=== PATIENT | male | born 1945 | race Caucasian/White ===

== ENCOUNTER 2024-08-07 12:56 | Day surgery (SDC) | payer MEDICARE ==
[2024-08-07 13:15] VITALS: BP 161/82; TEMP 98.1
[2024-08-07] MEDS ORDERED: Lidocaine 1% PF 5 ML VIAL ONE (13:17)
[2024-08-07] MEDS ORDERED: Sodium Bicarbonate 2.5 MEQ/5 ML SDV ONE (13:17)
[2024-08-07 15:25] LABS: Body Fluid Source Ascites Body Fluid; Clarity Hazy (Clear); Tube # EDTA
[2024-08-07 15:28] LABS: BF Color Yellow
[2024-08-07 16:02] LABS: BF Segmented Neutrophils 5 %; Cell Count Non Hematic 73 %; Lymphocytes 22 %
== END 2024-08-07 14:46 | disposition home or self-care (01) ==
LOC: CSHULT 12:56
PROVIDERS: ATTEND Physician Assistant Medical
PROC: 0W9G30Z Drainage of Peritoneal Cavity with Drainage Device, Percutaneous Approach (ICD-10-PCS; principal; 2024-08-07)
DX: K74.60 Unspecified cirrhosis of liver (principal); R18.8 Other ascites
CPT/HCPCS: 49083; 89051

== ENCOUNTER → 2024-08-21 | Day surgery (SDC) | payer MEDICARE ==
[~2024-08-21] MED LIST: Albumin 25% 200 ML ONE; FLU (Fluad Triv) TS24-25 (65UP)/MF59C/PF 45 MCG/0.5 ML Syringe IM ONE; Lidocaine 1% PF 5 ML VIAL ONE; Sodium Bicarbonate 2.5 MEQ/5 ML SDV ONE
[2024-08-21 13:17] VITALS: BP 126/60; TEMP 98.6
[2024-08-21 13:28] LABS: INR-International Normal Ratio 1.1; Prothrombin Time 11.7 sec (9.5-12.1)
[2024-08-21 13:36] LABS: #Basophils 0.03 10x3/uL (0.0-0.2); #Eosinophils 0.29 10x3/uL (0.0-0.5); #Monocytes 0.66 10x3/uL (0.0-1.1); #Neutrophils 5.64 10x3/uL (1.5-8.4); %Basophils 0.4 % (0.0-2.0); %Eosinophils 3.6 % (0.0-6.0); %Lymphocytes 18.1 % (18.0-47.0); %Monocytes 8.1 % (0.0-10.0); %Neutrophils 69.4 % (40.0-75.0); Hemoglobin 11.3 g/dL (13.5-17.5); Mean Corpuscular HGB CONC 32.3 g/dL (32.0-36.0); Mean Corpuscular Hemoglobin 32.5 pg (27.0-33.0); Mean Corpuscular Volume 100.6 fL (81.2-95.1); Mean Platelet Volume 9.6 fL (7.4-10.4); Platelet Count 133 10x3/uL (150-450); RBC Distribution Width 16.2 % (11.5-14.5); Red Blood Cell (RBC) Count 3.48 10x6/uL (4.32-5.72); White Blood Cell (WBC) Count 8.1 10x3/uL (3.5-10.5)
[2024-08-21 14:52] LABS: BF Color Yellow; Body Fluid Source Ascites Body Fluid; Clarity Clear (Clear); Tube # EDTA
[2024-08-21 15:39] LABS: BF Segmented Neutrophils 10 %; Cell Count Non Hematic 10 %; Lymphocytes 80 %
== END ==
LOC: CSHULT 12:29
PROVIDERS: ATTEND Physician Assistant Medical
PROC: 0W9G30Z Drainage of Peritoneal Cavity with Drainage Device, Percutaneous Approach (ICD-10-PCS; principal; 2024-08-21)
DX: K74.60 Unspecified cirrhosis of liver (principal); R18.8 Other ascites; I48.91 Unspecified atrial fibrillation; I25.10 Atherosclerotic heart disease of native coronary artery without angina pectoris; N18.30 Chronic kidney disease, stage 3 unspecified; E11.22 Type 2 diabetes mellitus with diabetic chronic kidney disease; K22.2 Esophageal obstruction; E03.9 Hypothyroidism, unspecified; Z96.619 Presence of unspecified artificial shoulder joint; Z96.653 Presence of artificial knee joint, bilateral; Z79.899 Other long term (current) drug therapy; F17.210 Nicotine dependence, cigarettes, uncomplicated
CPT/HCPCS: 49083; 85025; 85610; 89051; P9047

== ENCOUNTER → 2024-09-04 | Day surgery (SDC) | payer MEDICARE ==
[2024-09-04 13:04] VITALS: BP 146/61; TEMP 97.8
[2024-09-04 14:59] LABS: Body Fluid Source Paracentesis Fluid; Clarity Clear (Clear); Tube # EDTA
[2024-09-04 15:00] LABS: BF Color Yellow
[2024-09-04 15:08] LABS: BF Segmented Neutrophils 2 %; Cell Count Non Hematic 2 %; Lymphocytes 96 %
== END ==
LOC: CSHULT 12:10
PROVIDERS: ATTEND Physician Assistant Medical
PROC: 0W9G30Z Drainage of Peritoneal Cavity with Drainage Device, Percutaneous Approach (ICD-10-PCS; principal; 2024-09-04)
DX: K74.60 Unspecified cirrhosis of liver (principal); R18.8 Other ascites; I48.91 Unspecified atrial fibrillation; I25.10 Atherosclerotic heart disease of native coronary artery without angina pectoris; N18.30 Chronic kidney disease, stage 3 unspecified; E03.9 Hypothyroidism, unspecified; E11.22 Type 2 diabetes mellitus with diabetic chronic kidney disease; F17.210 Nicotine dependence, cigarettes, uncomplicated; Z96.659 Presence of unspecified artificial knee joint; Z90.89 Acquired absence of other organs; Z96.619 Presence of unspecified artificial shoulder joint; Z98.890 Other specified postprocedural states; Z79.899 Other long term (current) drug therapy; Z79.890 Hormone replacement therapy
CPT/HCPCS: 49083; 89051; P9047

== ENCOUNTER 2024-09-12 11:35 | Outpatient (CLI) | payer MEDICARE | END 2024-09-12 11:36 | disposition home or self-care (01) | LOC: CSHWCC 11:35 | PROVIDERS: ATTEND Nurse Practitioner Family | DX: L89.890 Pressure ulcer of other site, unstageable (principal) | CPT/HCPCS: 97597; G0463; 99213 ==

== ENCOUNTER 2024-09-18 12:29 | Day surgery (SDC) | payer MEDICARE ==
[2024-09-18] MEDS ORDERED: Albumin 25% 200 ML ONE (13:02)
[2024-09-18 13:11] VITALS: BP 122/62; TEMP 98.1
[2024-09-18] MEDS ORDERED: Sodium Bicarbonate 2.5 MEQ/5 ML SDV ONE (13:14)
[2024-09-18 14:48] LABS: BF Color Yellow; Body Fluid Source Ascites Body Fluid; Clarity Clear (Clear); Tube # EDTA
[2024-09-18 16:01] LABS: BF Segmented Neutrophils 5 %; Cell Count Non Hematic 9 %; Lymphocytes 86 %
== END 2024-09-18 14:19 | disposition home or self-care (01) ==
LOC: CSHULT 12:29
PROVIDERS: ATTEND Physician Assistant Medical
PROC: 0W9G30Z Drainage of Peritoneal Cavity with Drainage Device, Percutaneous Approach (ICD-10-PCS; principal; 2024-09-18)
DX: K74.60 Unspecified cirrhosis of liver (principal); R18.8 Other ascites; I25.10 Atherosclerotic heart disease of native coronary artery without angina pectoris; N18.30 Chronic kidney disease, stage 3 unspecified; E03.9 Hypothyroidism, unspecified; Z96.619 Presence of unspecified artificial shoulder joint; Z90.89 Acquired absence of other organs; Z96.659 Presence of unspecified artificial knee joint; Z79.899 Other long term (current) drug therapy; F17.210 Nicotine dependence, cigarettes, uncomplicated
CPT/HCPCS: 49083; 89051; P9047

== ENCOUNTER 2024-09-19 15:25 | Outpatient (CLI) | payer MEDICARE | END 2024-09-19 15:26 | disposition home or self-care (01) | LOC: CSHWCC 15:25 | PROVIDERS: ATTEND Nurse Practitioner Family | DX: L89.890 Pressure ulcer of other site, unstageable (principal); G90.09 Other idiopathic peripheral autonomic neuropathy | CPT/HCPCS: 97597; G0463; 99212 ==

== ENCOUNTER 2024-09-27 12:28 | Outpatient (CLI) | payer MEDICARE ==
[2024-09-27] MEDS ORDERED: Magnevist 469MG/ML 20 ML VIAL ONE (13:28)
== END 2024-09-27 12:29 | disposition home or self-care (01) ==
LOC: CSHMRI 12:28
PROVIDERS: ATTEND Nurse Practitioner Family
DX: L89.890 Pressure ulcer of other site, unstageable (principal); L89.899 Pressure ulcer of other site, unspecified stage; M89.9 Disorder of bone, unspecified

== ENCOUNTER 2024-10-02 09:00 | Day surgery (SDC) | payer MEDICARE ==
[2024-10-03 22:27] LABS: BF Color Yellow; Body Fluid Source Ascites Body Fluid; Clarity Clear (Clear); Tube # 1
[2024-10-03 22:29] LABS: BF Segmented Neutrophils 6 %; Cell Count Non Hematic 62 %; Lymphocytes 32 %
[2024-10-13 00:37] LABS: INR-International Normal Ratio 1.1; Prothrombin Time 11.7 sec (9.5-12.1)
== END 2024-10-02 13:00 | disposition home or self-care (01) ==
LOC: CSHULT 09:00
PROVIDERS: ATTEND Physician Assistant Medical
PROC: 0W9G3ZZ Drainage of Peritoneal Cavity, Percutaneous Approach (ICD-10-PCS; principal; 2024-10-02)
DX: K74.60 Unspecified cirrhosis of liver (principal); R18.8 Other ascites; I12.9 Hypertensive chronic kidney disease with stage 1 through stage 4 chronic kidney disease, or unspecified chronic kidney disease; N18.30 Chronic kidney disease, stage 3 unspecified; E11.22 Type 2 diabetes mellitus with diabetic chronic kidney disease; F17.210 Nicotine dependence, cigarettes, uncomplicated; Z86.73 Personal history of transient ischemic attack (TIA), and cerebral infarction without residual deficits; Z96.659 Presence of unspecified artificial knee joint; Z96.619 Presence of unspecified artificial shoulder joint; Z90.89 Acquired absence of other organs; Z98.890 Other specified postprocedural states; Z79.84 Long term (current) use of oral hypoglycemic drugs; Z79.899 Other long term (current) drug therapy
CPT/HCPCS: 49083; 85610; 89051

== ENCOUNTER 2024-10-04 12:36 | Outpatient (CLI) | payer MEDICARE | END 2024-10-04 12:37 | disposition home or self-care (01) | LOC: CSHWCC 12:36 | PROVIDERS: ATTEND Nurse Practitioner Family | DX: L89.890 Pressure ulcer of other site, unstageable (principal); G90.09 Other idiopathic peripheral autonomic neuropathy | CPT/HCPCS: 11042; G0463; 99212 ==

== ENCOUNTER 2024-10-08 11:38 | Emergency (ER) | payer MEDICARE ==
[2024-10-08 12:13] LABS: #Basophils 0.07 10x3/uL (0.0-0.2); #Eosinophils 0.36 10x3/uL (0.0-0.5); #Monocytes 0.71 10x3/uL (0.0-1.1); #Neutrophils 5.08 10x3/uL (1.5-8.4); %Eosinophils 4.9 % (0.0-6.0); %Lymphocytes 14.9 % (18.0-47.0); %Monocytes 9.7 % (0.0-10.0); %Neutrophils 69.4 % (40.0-75.0); Hematocrit 32.6 % (38.8-50.0); Hemoglobin 10.8 g/dL (13.5-17.5); Mean Corpuscular HGB CONC 33.1 g/dL (32.0-36.0); Mean Corpuscular Hemoglobin 32.6 pg (27.0-33.0); Mean Corpuscular Volume 98.5 fL (81.2-95.1); Platelet Count 155 10x3/uL (150-450); RBC Distribution Width 14.7 % (11.5-14.5); Red Blood Cell (RBC) Count 3.31 10x6/uL (4.32-5.72); White Blood Cell (WBC) Count 7.3 10x3/uL (3.5-10.5)
[2024-10-08 12:29] LABS: ALT (SGPT) 13 U/L (8-55); AST (SGOT) 25 U/L (5-34); Albumin 2.5 g/dL (3.4-4.8); Alkaline Phosphatase 168 U/L (40-110); Anion Gap 12 mmol/L (10-20); BUN (Urea Nitrogen) 21 mg/dL (8.4-25.7); Bilirubin, Total 1.1 mg/dL (0.2-1.2); Calc. Creatinine Clearance 0 mL/min (70-130); Calcium 9.3 mg/dL (7.8-10.44); Carbon Dioxide 24 mmol/L (23-31); Chloride 104 mmol/L (98-107); Estimated GFR 52; Globulin 3.9 g/dL (2.4-3.5); Glucose 167 mg/dL (83-110); Potassium 4.6 mmol/L (3.5-5.1); Protein, Total 6.4 g/dL (5.8-8.1); Sodium 135 mmol/L (136-145)
[2024-10-08] MEDS ORDERED: Lidocaine/Transparent Dressing 1 EACH KIT ONE (12:33)
[2024-10-08] MEDS ORDERED: Vancomycin 1 GM VIAL ONE (13:47)
[2024-10-08] MEDS ORDERED: Cefepime 2 GM VIAL ONE (16:45)
== END 2024-10-08 18:00 | disposition home or self-care (01) ==
LOC: CSHERS 11:38
DX: M86.9 Osteomyelitis, unspecified (principal); L97.529 Non-pressure chronic ulcer of other part of left foot with unspecified severity; E11.9 Type 2 diabetes mellitus without complications; F17.210 Nicotine dependence, cigarettes, uncomplicated; Z86.73 Personal history of transient ischemic attack (TIA), and cerebral infarction without residual deficits
CPT/HCPCS: 73630; 80053; 83605; 85025; 87040; 96374; 96375; 99283; J0692; J3370; 36415; J7030

== ENCOUNTER 2024-10-11 13:56 | Outpatient (CLI) | payer MEDICARE | END 2024-10-11 13:57 | disposition home or self-care (01) | LOC: CSHWCC 13:56 | PROVIDERS: ATTEND Family Medicine | DX: L89.890 Pressure ulcer of other site, unstageable (principal); M86.172 Other acute osteomyelitis, left ankle and foot; G90.09 Other idiopathic peripheral autonomic neuropathy | CPT/HCPCS: 11042 ==

== ENCOUNTER 2024-11-29 14:57 | Emergency (ER) | payer MEDICARE ==
[2024-11-29] MEDS ORDERED: Lidocaine 1% (PF) 30 ML VIAL ONE (16:07)
[2024-11-29] MEDS ORDERED: fentaNYL 50 mcg/mL 1 mL Vial ONE (16:07)
[2024-11-29 16:18] LABS: #Basophils 0.03 10x3/uL (0.0-0.2); #Monocytes 0.21 10x3/uL (0.0-1.1); #Neutrophils 7.81 10x3/uL (1.5-8.4); %Basophils 0.3 % (0.0-2.0); %Lymphocytes 14.8 % (18.0-47.0); %Monocytes 2.2 % (0.0-10.0); %Neutrophils 81.2 % (40.0-75.0); Hematocrit 30.9 % (38.8-50.0); Hemoglobin 10.9 g/dL (13.5-17.5); Mean Corpuscular HGB CONC 35.3 g/dL (32.0-36.0); Mean Corpuscular Hemoglobin 31.6 pg (27.0-33.0); Mean Corpuscular Volume 89.6 fL (81.2-95.1); Mean Platelet Volume 9.2 fL (7.4-10.4); Platelet Count 90 10x3/uL (150-450); RBC Distribution Width 15.4 % (11.5-14.5); Red Blood Cell (RBC) Count 3.45 10x6/uL (4.32-5.72); White Blood Cell (WBC) Count 9.62 10x3/uL (3.5-10.5)
[2024-11-29 16:21] LABS: INR-International Normal Ratio 1.2; PTT 31.6 sec (22.0-33.0); Prothrombin Time 12.9 sec (9.5-12.1)
[2024-11-29 16:23] LABS: ALT (SGPT) 16 U/L (Less than 45); AST (SGOT) 37 U/L (11-34); Albumin 2.2 g/dL (3.1-4.5); Alkaline Phosphatase 194 U/L (40-110); Anion Gap 18 mmol/L (10-20); BUN (Urea Nitrogen) 63 mg/dL (8.4-25.7); Bilirubin, Total 1.7 mg/dL (0.3-1.2); Calc. Creatinine Clearance 0 mL/min (70-130); Calcium 9.6 mg/dL (7.8-10.44); Carbon Dioxide 17 mmol/L (23-31); Chloride 99 mmol/L (98-107); Estimated GFR 33; Globulin 5.2 g/dL (2.4-3.5); Glucose 150 mg/dL (83-110); Lipase 52 U/L (8-78); Potassium 5.4 mmol/L (3.5-5.1); Protein, Total 7.4 g/dL (5.8-8.1); Sodium 129 mmol/L (136-145)
[2024-11-29 17:05] LABS: MDiff Complete? YES; Platelet Adequacy Comment Appears Decreased; RBC Morphology Within Normal Limits
== END 2024-11-29 17:26 | disposition home or self-care (01) ==
LOC: CSHERS 14:57
DX: R18.8 Other ascites (principal); E11.9 Type 2 diabetes mellitus without complications; Z86.73 Personal history of transient ischemic attack (TIA), and cerebral infarction without residual deficits; Z87.891 Personal history of nicotine dependence; Z96.651 Presence of right artificial knee joint
CPT/HCPCS: 49082; 80053; 83690; 85025; 85610; 85730; 93005; 96374; 99284; J3010; 93010

== ENCOUNTER 2024-12-02 13:41 | Outpatient (CLI) | payer MEDICARE | END 2024-12-02 13:42 | disposition home or self-care (01) | LOC: CSHWCC 13:41 | PROVIDERS: ATTEND Nurse Practitioner Family | DX: L89.890 Pressure ulcer of other site, unstageable (principal); G90.09 Other idiopathic peripheral autonomic neuropathy; M86.172 Other acute osteomyelitis, left ankle and foot | CPT/HCPCS: 97597 ==